=== PATIENT | female | born 1970 | race African-American/Black ===

== ENCOUNTER 2019-04-18 11:50 | Emergency (ER) | payer BC | END 2019-04-18 14:08 | disposition home or self-care (01) | LOC: FER 11:50 ==

== ENCOUNTER 2019-06-15 19:20 | Emergency (ER) | payer OTHER, BC | END 2019-06-15 22:59 | disposition home or self-care (01) | LOC: FER 19:20 ==

== ENCOUNTER 2020-07-25 12:28 | Emergency (ER) | payer SELFPAY ==
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
[2020-07-25] MEDS ORDERED: diazePAM 5 MG TABLET PO ONE (12:53)
[2020-07-25] MEDS ORDERED: KETOROLAC TROMETHAMINE 30 MG/1 ML VIAL IM ONE (12:54)
[2020-07-25] MEDS ORDERED: KETOROLAC TROMETHAMINE 30 MG/1 ML VIAL ONE (12:58)
[2020-07-25] MEDS ORDERED: diazePAM 5 MG TABLET ONE (12:58)
[2020-07-25 13:03] VITALS: BP 132/85; PULSE 80; TEMP 98.7; BMI 28.3
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
== END 2020-07-25 14:20 | disposition home or self-care (01) ==
LOC: FER 12:28
PROC: 3E0233Z Introduction of Anti-inflammatory into Muscle, Percutaneous Approach (ICD-10-PCS; principal; 2020-07-25)
DX: M62.838 Other muscle spasm (principal)
CPT/HCPCS: 81025; 99284-25

== ENCOUNTER 2020-10-12 23:24 | Emergency (ER) | payer OTHER ==
[2020-10-12 23:45] VITALS: BP 144/91; PULSE 96; TEMP 99.4; BMI 29.1
[2020-10-12] MEDS ORDERED: KETOROLAC TROMETHAMINE 60 MG/2 ML VIAL IM ONE (23:58)
[2020-10-12] MEDS ORDERED: KETOROLAC TROMETHAMINE 60 MG/2 ML VIAL ONE (23:59)
[2020-10-13] MEDS ORDERED: BACLOFEN 10 MG TABLET (FP) ONE (00:32)
[2020-10-13] MEDS ORDERED: BACLOFEN 10 MG TABLET (FP) PO ONE (00:33)
== END 2020-10-13 00:48 | disposition home or self-care (01) ==
LOC: FER 23:24
PROC: 3E0233Z Introduction of Anti-inflammatory into Muscle, Percutaneous Approach (ICD-10-PCS; principal; 2020-10-12)
DX: M62.838 Other muscle spasm (principal)
CPT/HCPCS: 99284-25; J0475

== ENCOUNTER 2021-11-01 06:23 | Day surgery (SDC) | payer OTHER ==
[2021-10-26 10:05] VITALS: BMI 31.6
[2021-11-01] MEDS ORDERED: MIDAZOLAM HCL 2 MG/2 ML SINGLE DOSE VIAL ONE (07:27)
[2021-11-01] MEDS ORDERED: EPINEPHrine 1:1,000 1 MG/1 ML - 30ML VIAL (INJECTION) ONE (07:28)
[2021-11-01] MEDS ORDERED: BUPIVACAINE HCL/PF 0.25% (2.5MG/ML) 10 ML VIAL ONE (07:28)
[2021-11-01] MEDS ORDERED: ONDANSETRON 4 MG/2 ML VIAL ONE (07:43)
[2021-11-01] MEDS ORDERED: ceFAZolin SODIUM 1 GM VIAL ONE (07:43)
[2021-11-01] MEDS ORDERED: DEXAMETHASONE SOD PHOSPHATE 4 MG/1 ML VIAL ONE (07:43)
[2021-11-01] MEDS ORDERED: PROPOFOL 20 ML ONE (07:49)
[2021-11-01] MEDS ORDERED: BUPIVACAINE HCL/PF 0.25% (2.5MG/ML) 10 ML VIAL IJ ONE (08:25)
[2021-11-01] MEDS ORDERED: ONDANSETRON 4 MG/2 ML VIAL IVPUSH PRN (08:36)
[2021-11-01] MEDS ORDERED: oxyCODONE HCL 5 MG TABLET PO PRN (08:36)
[2021-11-01] MEDS ORDERED: LACTATED RINGERS SOLUTION 1,000 ML IV SCH (08:45)
[2021-11-01] MEDS ORDERED: oxyCODONE HCL 5 MG TABLET ONE (10:09)
[2021-11-01] MEDS ORDERED: oxyCODONE HCL 5 MG TABLET PO ONE (10:11)
[2021-11-01 10:24] VITALS: PULSE 60; TEMP 97.8
[2021-11-01 10:52] VITALS: BP 100/56
== END 2021-11-01 12:14 | disposition home or self-care (01) ==
LOC: FASU 06:23
PROVIDERS: ATTEND Orthopaedic Surgery Sports Medicine
PROC: 0SBC4ZZ Excision of Right Knee Joint, Percutaneous Endoscopic Approach (ICD-10-PCS; principal; 2021-11-01 08:00)
DX: S83.241A Other tear of medial meniscus, current injury, right knee, initial encounter (principal); M94.261 Chondromalacia, right knee; M65.861 Other synovitis and tenosynovitis, right lower leg; X58.XXXA Exposure to other specified factors, initial encounter; Y93.9 Activity, unspecified; Y92.9 Unspecified place or not applicable
CPT/HCPCS: 94760

== ENCOUNTER 2021-11-11 18:06 | Emergency (ER) | payer OTHER ==
[2021-11-11 18:09] VITALS: BP 112/72; PULSE 95; TEMP 99.4; BMI 31.6
[2021-11-11] MEDS ORDERED: DEXAMETHASONE LIQUID 0.5 MG/5 ML PO ONE (18:15)
[2021-11-11] MEDS ORDERED: ALBUTEROL SO4 2.5/IPRATROPIUM 0.5 INH SOL 3 ML VIAL.NEB. NEB ONE ×4 (18:15→20:06)
[2021-11-11] MEDS ORDERED: DEXAMETHASONE 4 MG TABLET (FP) PO ONE (18:16)
[2021-11-11] MEDS ORDERED: DEXAMETHASONE 4 MG TABLET (FP) ONE (18:19)
[2021-11-11] MEDS ORDERED: ALBUTEROL SO4 0.083% IH SOL 2.5 MG/3 ML VIAL.NEB. NEB ONE (19:01)
[2021-11-11] MEDS ORDERED: ALBUTEROL SO4 0.083% IH SOL 2.5 MG/3 ML VIAL.NEB. NEB STA (19:09)
== END 2021-11-11 22:15 | disposition home or self-care (01) ==
LOC: FER 18:06
PROC: 3E0F7GC Introduction of Other Therapeutic Substance into Respiratory Tract, Via Natural or Artificial Opening (ICD-10-PCS; principal; 2021-11-11)
DX: J45.909 Unspecified asthma, uncomplicated (principal)
CPT/HCPCS: 93005; 99285-25; C9803; U0003; U0005

== ENCOUNTER 2023-01-27 18:30 | Emergency (ER) | payer OTHER ==
[2023-01-27 18:34] VITALS: BP 154/82; PULSE 81; RESP 18; TEMP 98.1; BMI 29.1
[2023-01-27] MEDS ORDERED: IBUPROFEN 600 MG TABLET (FP) PO ONE ×2 (19:35→19:36)
== END 2023-01-27 21:39 | disposition home or self-care (01) ==
LOC: FER 18:30
DX: M79.604 Pain in right leg (principal)
CPT/HCPCS: 73590-TC-RT-FY; 93971-TC; 99284-25